=== PATIENT | female | born 2000 | race Caucasian/White ===

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

== ENCOUNTER 2023-07-29 14:31 | Emergency (ER) | payer OTHER, SELFPAY ==
[2023-07-29 14:38] VITALS: BP 125/85; PULSE 87; RESP 16; TEMP 36.8; O2SAT 100
--- NOTE | 2023-07-29 14:46 | ED.SKABFB ---
HPI - Skin/Abscess/Foreign Bdy General Chief complaint: Skin/Abscess/Foreign Body Stated complaint: Break out on face Time Seen by Provider: 07/29/23 14:51 Source: patient and RN notes reviewed Mode of arrival: ambulatory Limitations: no limitations History of Present Illness HPI narrative: 23-year-old female presents with concern for rash under her eyes. She reports this started about 2 weeks ago she was seen by the clinic at school who had her use hydrocortisone cream. Reports she has been using that intermittently and the rash seemed to resolve. Reports it returned 2 days ago. She denies pain or itching. She reports the skin is irritated. She denies vision changes or drainage. MD complaint: rash Related Data Home Medications Medication Instructions Recorded Confirmed etonogestrel 68 mg subdermal 68 mg subdermal USEASDIRECTD 11/27/21 07/29/23 implant (Nexplanon) Allergies Allergy/AdvReac Type Severity Reaction Status Date / Time amoxicillin Allergy Rash Verified 07/29/23 14:58 sulfamethoxazole Allergy Rash Verified 07/29/23 14:58 [From Bactrim] trimethoprim [From Bactrim] Allergy Rash Verified 07/29/23 14:58 Review of Systems Review of Systems: CONSTITUTIONAL: Denies malaise, chills, sweats, or fever. EYES: Denies redness, or discharge. ENT: Denies rhinorrhea, congestion, swollen lips, swollen tongue CARDIOVASCULAR: Denies chest pain, palpitations, or edema. RESPIRATORY: Denies cough or dyspnea. GASTROINTESTINAL: Denies abdominal pain, nausea, vomiting SKIN: Reports rash on both lower eyelids MUSCULOSKELETAL: Denies joint pain or myalgia. NEUROLOGIC: Denies headache. All systems reviewed & are unremarkable except as noted in HPI and below PMFSH Comments At time of signature, agree with nursing past medical, surgical, social and family history. There is no relevant family history pertinent to the presenting complaint Exam Narrative: GENERAL: Well-appearing, well-nourished, and in no acute distress. HEAD: Normocephalic, atraumatic. EYES: PERRLA, conjunctivae clear, and EOMI. ENT: Mucous membranes moist. Oropharynx without edema, erythema or lesions. NECK: Supple. No lymphadenopathy CHEST: Clear to auscultation. No respiratory distress. HEART: Regular rate and rhythm. SKIN: Warm, dry. Erythematous slightly raised rash on both lower eyelids, no tenderness NEURO: Alert and oriented x3. PSYCH: Normal mood and affect Course Course Emergency Course: Patient is aware of diagnosis, understands and agrees to treatment plan. Anticipatory guidance given. Patient agrees to follow-up as directed and is aware of reasons to seek care at the emergency department. Portions of this record may have been created with voice recognition software Level of Care: Express Care Visit Vital Signs Vital signs: Vital Signs Temperature 98.3 F 07/29/23 14:38 Pulse Rate 87 07/29/23 14:38 Respiratory Rate 16 07/29/23 14:38 Blood Pressure 125/85 07/29/23 14:38 Pulse Oximetry 100 07/29/23 14:38 Temperature 98.3 F 07/29/23 14:38 Pulse Rate 87 07/29/23 14:38 Respiratory Rate 16 07/29/23 14:38 Blood Pressure 125/85 07/29/23 14:38 Pulse Oximetry 100 07/29/23 14:38 Reviewed. MDM - Skin/Abscess/Foreign Bdy MDM Narrative Medical decision making narrative: Exam findings show no acute concerns or changes; patient is non-toxic appearing and is in no distress. Patient is appropriate for outpatient treatment and follow-up. Critical Care Time Critical Care Time Critical Care Time: No Discharge Plan Discharge Clinical Impression: Dermatitis, eyelid Patient Disposition: Home, Self-Care Condition: Stable Instructions: Dermatitis (ED) Additional Instructions: Take steroids as directed. Apply [id number] hydrocortisone cream twice daily for 1 week. Avoid wearing eye makeup, use only hypoallergenic soaps or lotions on your face. Follow-up with your derm
== END 2023-07-29 15:02 | disposition home or self-care (01) ==
PROVIDERS: Emergency Provider Nurse Practitioner
DX: H01.9 Unspecified inflammation of eyelid (principal)
CPT/HCPCS: 99213; G0463